=== PATIENT | male | born 1995 | race Caucasian/White ===

== ENCOUNTER 2025-01-12 03:23 | Emergency (ER) | payer SELFPAY ==
[~2025-01-12] VITALS: Ht 203.2 cm; Wt 149.7 kg
[~2025-01-12 03:23] MED LIST: MEN UNDER 50 M1 EACH PO; OMEPRAZOLE20 MG PO
[2025-01-12] MEDS ORDERED: PREDNISOLONE ACE5 ML OPTH (03:38)
[2025-01-12] MEDS ORDERED: NEOMYCIN/POLYMYXIN/DEXAMETH OPTH SUSPENSION BOTTLE OS ONE (03:45)
[2025-01-12] MEDS ORDERED: MAXITROL EYE DRO5 ML OPTH (03:48)
[2025-01-12 04:09] VITALS: BP 137/80
== END 2025-01-12 04:11 | disposition home or self-care (01) ==
LOC: ED 03:23
DX: T65.891A Toxic effect of other specified substances, accidental (unintentional), initial encounter (principal); T26.92XA Corrosion of left eye and adnexa, part unspecified, initial encounter; Z88.2 Allergy status to sulfonamides; Z79.899 Other long term (current) drug therapy

== ENCOUNTER 2025-03-14 23:22 | Emergency (ER) | payer SELFPAY ==
[~2025-03-14] VITALS: Ht 203.2 cm; Wt 150.0 kg
[~2025-03-14 23:22] MED LIST changes: +MAXITROL EYE DRO5 ML OPTH; +PREDNISOLONE ACE5 ML OPTH
[2025-03-14 23:44] LABS: BASOPHILS 0.9 % (0-2); EOSINOPHILS 0.9 % (0-6); HEMATOCRIT 44.3 % (35.0-50.0); HEMOGLOBIN 15.6 g/dL (12.0-18.0); LYMPHOCYTES 39.2 % (24-44); MCHC 35.2 g/dl (30-36); MCV 85.1 fl (81-99); MONOCYTES 7.2 % (0-12); NEUTROPHILS 51.8 % (39-80); PLATELET COUNT 251 K/uL (140-440); RDW 13.3 (10.5-15.0)
[2025-03-14] MEDS ORDERED: ondansetron HCL 4 MG/2 ML VIAL IV ONE (23:45)
[2025-03-14] MEDS ORDERED: KETOROLAC TROMETHAMINE 15 MG/ML VIAL IV ONE (23:45)
[2025-03-14] MEDS ORDERED: HYDROmorphone HCL 1 MG/ML SYR IV ONE (23:45)
[2025-03-14] MEDS ORDERED: SODIUM CHLORIDE 0.9% 1,000 ML IV ONE (23:45)
[2025-03-15 00:11] LABS: ALBUMIN/GLOBULIN RATIO 1.25 (1.1-2.4); ANION GAP 12.5 (7-21); BILIRUBIN, TOTAL 0.7 mg/dL (0.2-1.0); BUN/CREATININE RATIO 9.09 (6.0-28.6); CALCIUM 9.1 mg/dL (8.5-10.1); CREATININE, SERUM 1.21 mg/dL (0.70-1.30); POTASSIUM 3.5 mmol/L (3.5-5.1); PROTEIN, TOTAL 7.2 g/dL (6.4-8.2)
[2025-03-15] MEDS ORDERED: droPERidol 5 MG/2 ML VIAL ONE (00:11)
[2025-03-15] MEDS ORDERED: droPERidol 5 MG/2 ML VIAL IV ONE (00:15)
[2025-03-15 01:15] LABS: BILIRUBIN, URINE NEGATIVE (negative); BLOOD/HGB, URINE NEGATIVE (Negative); KETONE, URINE NEGATIVE (Negative); LEUK ESTERASE, URINE NEGATIVE (negative); NITRITE, URINE NEGATIVE (negative)
[2025-03-15] MEDS ORDERED: KETOROLAC TROME10 MG PO (01:32)
[2025-03-15] MEDS ORDERED: ONDANSETRON ODT8 MG PO (01:32)
[2025-03-15] MEDS ORDERED: ONDANSETRON 4 MG HOME.PACK SL ONE (01:45)
[2025-03-15] MEDS ORDERED: HYDROCODONE BIT/ACETAMINOPHEN 5/325 MG 1 TAB HOME.PACK PO ONE (01:45)
[2025-03-15 01:48] VITALS: BP 127/75
== END 2025-03-15 01:48 | disposition home or self-care (01) ==
LOC: ED 23:22
PROVIDERS: Family Medicine
DX: R10.9 Unspecified abdominal pain (principal); M54.9 Dorsalgia, unspecified; Z88.2 Allergy status to sulfonamides; Z79.899 Other long term (current) drug therapy
CPT/HCPCS: 36415; 74176; 80053; 81003; 85025; 96361; 96374; 96375; 99284-25; A9270; J1171; J1790; J1885; J2405; J7030

== ENCOUNTER 2025-03-23 18:01 | Emergency (ER) | payer SELFPAY ==
[~2025-03-23] VITALS: Ht 203.2 cm; Wt 148.8 kg
[~2025-03-23 18:01] MED LIST changes: +KETOROLAC TROME10 MG PO; +ONDANSETRON ODT8 MG PO
--- OUTSIDE RECORDS SUMMARY | 2025-03-23 18:07 | XMS ---
PreManage Notification: GAYLA ORELLANA Security Concrete Smoother Events No recent Security Events currently on file CRITERIA MET - [facility] - 2 Visits in 30 Days CARE PROVIDERS Edith Can Community Health Worker 04/10/2020-Current PHONE: [phone] VALENTIN CANO Internal Medicine Current PHONE: [phone] Care Guidelines exist for the following facilities: [facility] ( 08/29/2018 ) Alejandrina VISIT COUNT (12 MO.) 4 [facility] [place] 2 [facility] TOTAL 6 NOTE: Visits indicate total known visits. ED/UCC VISIT TRACKING (12 MO.) 03/23/2025 18:01 [facility] TYPE: Emergency COMPLAINT: - VOMITING/ABDOMINAL PAIN 03/14/2025 23:23 [facility] TYPE: Emergency COMPLAINT: - KIDNEY STONE DIAGNOSES: - Allergy status to sulfonamides - Dorsalgia, unspecified - Other buttermaker continuous churn (current) drug therapy - Unspecified abdominal pain 01/12/2025 03:24 [facility] [place] TYPE: Emergency COMPLAINT: - EYE ISSUES DIAGNOSES: - Allergy status to sulfonamides - Corrosion of left eye and adnexa, part unspecified, initial encounter - Other chcf (current) drug therapy - Other visual disturbances - Toxic effect of other specified substances, accidental (unintentional), initial encounter [facility] DIAGNOSES: - Contusion of left front wall of thorax, initial encounter - Fall on same level, unspecified, initial encounter - RIB AND KIDNEY PAIN 07/08/2024 15:04 [facility] [place] TYPE: Emergency DIAGNOSES: - Dorsalgia, unspecified - Fall on same level, unspecified, initial encounter - L SIDE PAIN 07/08/2024 13:26 [facility] TYPE: Emergency COMPLAINT: - LT SIDE INJURY INPATIENT VISIT TRACKING (12 MO.) No inpatient visits to display in this time frame [email or web address]
[2025-03-23] MEDS ORDERED: ondansetron HCL 4 MG/2 ML VIAL IV ONE (18:30)
[2025-03-23 18:51] LABS: BASOPHILS 0.7 % (0-2); EOSINOPHILS 1.3 % (0-6); HEMATOCRIT 41.4 % (35.0-50.0); HEMOGLOBIN 14.7 g/dL (12.0-18.0); LYMPHOCYTES 36.2 % (24-44); MCHC 35.4 g/dl (30-36); MCV 84.8 fl (81-99); MONOCYTES 8.3 % (0-12); NEUTROPHILS 53.5 % (39-80); PLATELET COUNT 209 K/uL (140-440); RBC 4.89 M/ul (4.3-5.7); RDW 13.1 (10.5-15.0)
[2025-03-23 19:12] LABS: ALBUMIN 3.9 g/dL (3.4-5.0); ALBUMIN/GLOBULIN RATIO 1.5 (1.1-2.4); BILIRUBIN, TOTAL 0.5 mg/dL (0.2-1.0); BUN/CREATININE RATIO 11.32 (6.0-28.6); CALCIUM 8.6 mg/dL (8.5-10.1); CREATININE, SERUM 1.06 mg/dL (0.70-1.30); MAGNESIUM 1.8 mg/dL (1.8-2.4); PROTEIN, TOTAL 6.5 g/dL (6.4-8.2)
[2025-03-23 19:42] LABS: ALCOHOL, MEDICAL <3 ng/dL (<3); CHOLESTEROL 140 mg/dL (<200); CHOLESTEROL/HDL RATIO 3.5; HDL CHOLESTEROL 40 (40-60); LDL CHOLESTEROL 74 mg/dL (< 129); TRIGLYCERIDES 132 ng/dL (<150); VLDL CHOLESTEROL 26
[2025-03-23] MEDS ORDERED: LACTATED RINGER'S 1,000 ML IV ONE (19:45)
[2025-03-23] MEDS ORDERED: droPERidol 5 MG/2 ML VIAL IV ONE (19:45)
[2025-03-23] MEDS ORDERED: FAMOTIDINE 20 MG/ 2 ML VIAL IV ONE (19:45)
[2025-03-23] MEDS ORDERED: HYDROmorphone HCL 1 MG/ML SYR IV PRN (19:45)
[2025-03-23 19:51] LABS: BILIRUBIN, URINE NEGATIVE (negative); BLOOD/HGB, URINE NEGATIVE (Negative); KETONE, URINE NEGATIVE (Negative); LEUK ESTERASE, URINE NEGATIVE (negative); NITRITE, URINE NEGATIVE (negative); PH, URINE 7.5 (5-7)
[2025-03-23 20:11] LABS: AMPHETAMINES, URINE NEGATIVE (NEGATIVE); BARBITURATES, URINE NEGATIVE (NEGATIVE); BENZODIAZEPINE, URINE NEGATIVE (NEGATIVE); BUPRENORPHINE, URINE NEGATIVE (NEGATIVE); CANNABINOID, URINE POSITIVE (NEGATIVE); COCAINE, URINE NEGATIVE (NEGATIVE); ECSTASY, URINE NEGATIVE (NEGATIVE); FENTANYL, URINE NEGATIVE (NEGATIVE); METHADONE, URINE NEGATIVE (NEGATIVE); OPIATES, URINE NEGATIVE (NEGATIVE); OXYCODONE, URINE NEGATIVE (NEGATIVE); PHENCYCLIDINE, URINE NEGATIVE (NEGATIVE)
[2025-03-23 21:54] VITALS: BP 135/77
== END 2025-03-23 21:55 | disposition home or self-care (01) ==
LOC: ED 18:01
PROVIDERS: Emergency Medicine; Internal Medicine
DX: S39.011A Strain of muscle, fascia and tendon of abdomen, initial encounter (principal); X58.XXXA Exposure to other specified factors, initial encounter; Z88.2 Allergy status to sulfonamides; Z79.899 Other long term (current) drug therapy
CPT/HCPCS: 36415; 74177; 80053; 80061; 80307; 81003; 83690; 83735; 85025; 99284-25; G0480; J1171; J1790; J2405; J7121; Q9967

== ENCOUNTER 2025-07-13 21:25 | Emergency (ER) | payer BC ==
[~2025-07-13] VITALS: Ht 203.2 cm; Wt 143.5 kg
[2025-07-13 22:00] LABS: BASOPHILS 0.7 % (0.2-1.2); EOSINOPHILS 2.5 % (0.8-7.0); LYMPHOCYTES 28.6 % (21.8-53.1); MCH 29.8 PG (25.7-32.2); MCHC 34.7 g/dL (32.3-36.5); MCV 85.8 fL (79.0-92.2); MONOCYTES 9.4 % (5.3-12.2); NEUTROPHILS 58.4 % (34.0-67.9); RBC 4.87 M/uL (4.63-6.08)
[2025-07-13 22:17] LABS: INR 1.09 (0.80-1.30); PROTIME 13.7 Sec (11.2-14.2)
[2025-07-13 22:18] LABS: ALT (SGPT) 23.0 U/L (14-59); AST (SGOT) 18.0 U/L (15-37); GLOMERULAR FILTRATION RATE,EST 113.0 mL/min (>60); PROTEIN, TOTAL 6.8 g/dL (6.4-8.2); UREA NITROGEN 12.0 mg/dL (7-18)
[2025-07-13] MEDS ORDERED: MORPHINE SULFATE 4 MG/ML VIAL IV ONE (23:00)
[2025-07-14] MEDS ORDERED: CYCLOBENZAPRINE10 MG PO (00:11)
[2025-07-14] MEDS ORDERED: CYCLOBENZAPRINE HCL 10 MG HOME.PACK PO ONE (00:15)
[2025-07-14 00:40] VITALS: BP 176/99
--- NOTE | 2025-07-14 07:24 | EKG ---
[facility] [address] [place], [place] [address] Signed Sinus rhythm with 1st degree AV block Otherwise normal ECG No previous ECGs available Confirmed by JOHN MURGUIA MD ([id number]) on 07/14/2025 7:24:00 AM Electronically Signed By: JOHN MURGUIA 07/14/25 0724 PATIENT NAME: GAYLA ORELLANA Electrocardiogram DATE OF : 89 PHYSICIAN: JOHN MURGUIA REPORT #: [id number] REPORT IS CONFIDENTIAL AND NOT TO BE RELEASED WITHOUT AUTHORIZATION
== END 2025-07-14 00:40 | disposition home or self-care (01) ==
LOC: ED 21:25
PROVIDERS: Family Medicine
DX: R07.89 Other chest pain (principal); Z88.2 Allergy status to sulfonamides
CPT/HCPCS: 36415; 71045; 80053; 83735; 84484; 85025; 85379; 85610; 93005; 93010; 96374; 99285-25; J2270

== ENCOUNTER 2025-09-18 09:09 | Emergency (ER) | payer BC ==
[~2025-09-18] VITALS: Ht 203.2 cm; Wt 142.7 kg
[~2025-09-18 09:09] MED LIST changes: +CYCLOBENZAPRINE10 MG PO
[2025-09-18] MEDS ORDERED: SODIUM CHLORIDE 0.9% 1,000 ML IV ONE (09:30)
[2025-09-18] MEDS ORDERED: KETOROLAC TROMETHAMINE 30 MG/ML VIAL IV ONE (09:30)
[2025-09-18] MEDS ORDERED: FLOMAX0.4 MG PO (09:32)
[2025-09-18 09:47] LABS: BASOPHILS 0.6 % (0.2-1.2); EOSINOPHILS 1.0 % (0.8-7.0); LYMPHOCYTES 30.9 % (21.8-53.1); MCH 29.8 PG (25.7-32.2); MCHC 34.4 g/dL (32.3-36.5); MCV 86.6 fL (79.0-92.2); MONOCYTES 7.3 % (5.3-12.2); NEUTROPHILS 59.9 % (34.0-67.9); RBC 4.84 M/uL (4.63-6.08)
[2025-09-18 10:05] LABS: ALT (SGPT) 31.0 U/L (14-59); AST (SGOT) 18.0 U/L (15-37); GLOMERULAR FILTRATION RATE,EST 121.0 mL/min (>60); PROTEIN, TOTAL 7.0 g/dL (6.4-8.2); UREA NITROGEN 12.0 mg/dL (7-18)
[2025-09-18 11:03] LABS: BLOOD/HGB, URINE NEGATIVE (Negative); KETONE, URINE NEGATIVE (Negative); LEUK ESTERASE, URINE NEGATIVE (negative); NITRITE, URINE NEGATIVE (negative)
[2025-09-18] MEDS ORDERED: HYDROCODONE/ACETA 7.5/325 TAB PO ONE ×2 (12:15)
[2025-09-18] MEDS ORDERED: HYDROCODON-ACE1 EA11 PO (12:17)
[2025-09-18 12:32] VITALS: BP 123/80
== END 2025-09-18 12:32 | disposition home or self-care (01) ==
LOC: ED 09:09
PROVIDERS: Emergency Medicine
DX: R10.9 Unspecified abdominal pain (principal); N28.1 Cyst of kidney, acquired; Z88.2 Allergy status to sulfonamides
CPT/HCPCS: 36415; 74176; 80053; 81003; 83690; 85025; 96361; 96374; 96375; 99284-25; A9270; J1885; J2405; J7030

== ENCOUNTER 2025-09-24 10:56 | Emergency (ER) | payer BC ==
[~2025-09-24] VITALS: Ht 203.2 cm; Wt 140.0 kg
[~2025-09-24 10:56] MED LIST changes: +FLOMAX0.4 MG PO; +HYDROCODON-ACE1 EA11 PO
--- OUTSIDE RECORDS SUMMARY | 2025-09-24 10:57 | XMS ---
PreManage Notification: GAYLA ORELLANA Security Food And Nutrition Supervisor Events No recent Security Events currently on file CRITERIA MET - [facility] - 2 Visits in 30 Days CARE PROVIDERS Edith Can Community Health Worker 04/10/2020-Current PHONE: [phone] VALENTIN CANO Internal Medicine Current PHONE: [phone] Care Guidelines exist for the following facilities: [facility] ( 08/29/2018 ) Alejandrina VISIT COUNT (12 MO.) [address] [facility] [place] TOTAL 6 NOTE: Visits indicate total known visits. ED/UCC VISIT TRACKING (12 MO.) 09/24/2025 10:56 [facility] TYPE: Emergency COMPLAINT: - VOMITING 09/18/2025 09:10 [facility] TYPE: Emergency COMPLAINT: - VOMITING DIAGNOSES: - Allergy status to sulfonamides - Cyst of kidney, acquired - Flank pain, bilateral - Unspecified abdominal pain 07/13/2025 21:26 [facility] TYPE: Emergency COMPLAINT: - CHEST PAIN DIAGNOSES: - Allergy status to sulfonamides - Chest pain, unspecified - Other chest pain 03/23/2025 18:01 [facility] TYPE: Emergency COMPLAINT: - VOMITING/ABDOMINAL PAIN DIAGNOSES: - Allergy status to sulfonamides - Exposure to other specified factors, initial encounter - Left lower quadrant pain - Other airplane coverer (current) drug therapy - Strain of muscle, fascia and tendon of abdomen, initial encounter 03/14/2025 23:23 [facility] TYPE: Emergency COMPLAINT: - KIDNEY STONE DIAGNOSES: - Allergy status to sulfonamides - Dorsalgia, unspecified - Other airplane coverer (current) drug therapy - Unspecified abdominal pain 01/12/2025 03:24 [facility] TYPE: Emergency COMPLAINT: - EYE ISSUES DIAGNOSES: - Allergy status to sulfonamides - Corrosion of left eye and adnexa, part unspecified, initial encounter - Other airplane coverer (current) drug therapy - Other visual disturbances - Toxic effect of other specified substances, accidental (unintentional), initial encounter INPATIENT VISIT TRACKING (12 MO.) No inpatient visits to display in this time frame [email or web address]
[2025-09-24 11:40] LABS: BASOPHILS 0.6 % (0.2-1.2); EOSINOPHILS 1.9 % (0.8-7.0); LYMPHOCYTES 29.2 % (21.8-53.1); MCH 29.9 PG (25.7-32.2); MCHC 34.4 g/dL (32.3-36.5); MCV 87.0 fL (79.0-92.2); MONOCYTES 6.8 % (5.3-12.2); NEUTROPHILS 61.4 % (34.0-67.9); RBC 4.91 M/uL (4.63-6.08)
[2025-09-24 11:50] LABS: ALT (SGPT) 31.0 U/L (14-59); AST (SGOT) 15.0 U/L (15-37); GLOMERULAR FILTRATION RATE,EST 120.0 mL/min (>60); PROTEIN, TOTAL 7.1 g/dL (6.4-8.2); UREA NITROGEN 9.0 mg/dL (7-18)
[2025-09-24] MEDS ORDERED: SODIUM CHLORIDE 0.9% 1,000 ML IV PRN (12:30)
[2025-09-24] MEDS ORDERED: MORPHINE SULFATE 4 MG/ML VIAL IV ONE (12:30)
[2025-09-24] MEDS ORDERED: ONDANSETRON ODT8 MG PO (12:46)
[2025-09-24 12:50] VITALS: BP 124/70
== END 2025-09-24 12:51 | disposition home or self-care (01) ==
LOC: ED 10:56
PROVIDERS: Emergency Medicine
DX: R10.9 Unspecified abdominal pain (principal); Z88.2 Allergy status to sulfonamides
CPT/HCPCS: 36415; 80053; 83690; 83735; 85025; 96374; 99284-25; J2405